=== PATIENT | female | born 1955 ===

== ENCOUNTER 2018-05-25 12:42 | Emergency (ER) | payer OTHER ==
[~2018-05-25] VITALS: Ht 157.5 cm; Wt 63.5 kg
== END 2018-05-25 14:24 | disposition home or self-care (01) ==
LOC: ER 12:42
DX: L30.8 Other specified dermatitis (principal)

== ENCOUNTER 2021-07-20 21:19 | Emergency (ER) | payer OTHER ==
[~2021-07-20] VITALS: Ht 154.9 cm; Wt 67.6 kg
[2021-07-20] MEDS ORDERED: VITAMIN B-121000 MC4 (21:26)
== END 2021-07-20 22:48 | disposition home or self-care (01) ==
LOC: ER 21:19
DX: M25.531 Pain in right wrist (principal)

== ENCOUNTER 2022-03-15 12:06 | Outpatient (CLI) | payer OTHER ==
[~2022-03-15 12:06] MED LIST: VITAMIN B-121000 MC4
== END 2022-03-15 12:11 | disposition home or self-care (01) ==
LOC: RAD 12:06
PROVIDERS: ATTEND Orthopaedic Surgery
DX: M75.122 Complete rotator cuff tear or rupture of left shoulder, not specified as traumatic (principal)

== ENCOUNTER 2023-11-16 07:02 | Outpatient (CLI) | payer OTHER | END 2023-11-16 07:03 | disposition home or self-care (01) | LOC: LAB 07:02 | PROVIDERS: ATTEND Orthopaedic Surgery | DX: E56.1 Deficiency of vitamin K (principal) ==

== ENCOUNTER 2024-02-27 12:46 | Outpatient (CLI) | payer OTHER | END 2024-02-27 12:53 | disposition home or self-care (01) | LOC: NUCLEAR 12:46 | PROVIDERS: ATTEND Orthopaedic Surgery | DX: M81.0 Age-related osteoporosis without current pathological fracture (principal) ==

== ENCOUNTER 2024-04-22 08:09 | Outpatient (CLI) | payer OTHER | END 2024-04-22 08:13 | disposition home or self-care (01) | LOC: LAB 08:09 | PROVIDERS: ATTEND Orthopaedic Surgery | DX: E55.9 Vitamin D deficiency, unspecified (principal); M85.9 Disorder of bone density and structure, unspecified; E56.1 Deficiency of vitamin K ==